=== PATIENT | female | born 1980 | race Caucasian/White ===

== ENCOUNTER 2017-12-04 12:19 | Emergency (ER) | payer BC, OTHER ==
[2017-12-04 12:28] VITALS: BP 138/87
--- NOTE | 2017-12-04 13:04 | ER Document Report ---
ED General - General Chief Complaint: Back Pain Stated Complaint: BACK PAIN Time Seen by Provider: 12/04/17 13:04 Mode of Arrival: Wheelchair Information source: Patient Notes: 37-year-old female has been having low back pain for 1 month. She was seen Dr. Hutchins is a chiropractor and he stated that he was not able to help her so he ordered an MRI. Her MRI showed a herniated L4-L5 disc. She has an appointment with Dr. Farr on Thursday. The chiropractor stated that he cannot prescribe any medications to treat the pain. She works for [employer] and even though she told them that she should not be doing any lifting she had to lift baggage yesterday which aggravated her back pain. She has no saddle anesthesia, fever, or radiculopathy into her legs. TRAVEL OUTSIDE OF THE [place] IN LAST 30 DAYS: No - Related Data Allergies/Adverse Reactions: No Known Allergies Allergy (Unverified 12/04/17 12:22) Past Medical History - General Information source: Patient - Social History Smoking Status: Current Every Day Smoker Frequency of alcohol use: None Drug Abuse: None Lives with: Family Family History: Reviewed & Not Pertinent Musculoskeletal Medical History: Reports Other - Recent diagnosis of herniated L4-L5 Past Surgical History: Reports: Hx Hysterectomy Review of Systems - Review of Systems Constitutional: No symptoms reported EENT: No symptoms reported Cardiovascular: No symptoms reported Respiratory: No symptoms reported Gastrointestinal: No symptoms reported Genitourinary: No symptoms reported Female Genitourinary: No symptoms reported Musculoskeletal: See HPI Skin: No symptoms reported Hematologic/Lymphatic: No symptoms reported Neurological/Psychological: No symptoms reported Physical Exam - Vital signs Vitals: Temp Pulse Resp BP Pulse Ox 98.2 F 89 16 138/87 H 100 12/04/17 12:26 12/04/17 12:26 12/04/17 12:26 12/04/17 12:26 12/04/17 12:26 Interpretation: Normal - General General appearance: Appears well, Alert In distress: None - HEENT Head: Normocephalic, Atraumatic Eyes: Normal Pupils: PERRL Neck: Supple. No: Lymphadenopathy - Respiratory Respiratory status: No respiratory distress Chest status: Nontender Breath sounds: Normal Chest palpation: Normal - Cardiovascular Rhythm: Regular Heart sounds: Normal auscultation Murmur: No - Abdominal Inspection: Normal Distension: No distension Bowel sounds: Normal Tenderness: Nontender Organomegaly: No organomegaly - Back Back: Normal, Nontender. No: Tender - Extremities General upper extremity: Normal inspection, Nontender, Normal color, Normal ROM , Normal temperature General lower extremity: Normal inspection, Nontender, Normal color, Normal ROM , Normal temperature, Normal weight bearing. No: Patrice's sign - Neurological Neuro grossly intact: Yes Cognition: Normal Orientation: AAOx4 Oanh Coma Scale Eye Opening: Spontaneous [place] Coma Scale Verbal: Oriented [place] Coma Scale Motor: Obeys Commands Oanh Coma Scale Total: 15 Speech: Normal Motor strength normal: LUE, RUE, LLE, RLE Sensory: Normal Knee - Reflex grade: 2 = Normal - Bilateral Ankle - Reflex grade: 2 = Normal - Bilateral - Psychological Associated symptoms: Normal affect, Normal mood - Skin Skin Temperature: Warm Skin Moisture: Dry Skin Color: Normal Skin irregularity: negative: Rash Course - Vital Signs Vital signs: Temp Pulse Resp BP Pulse Ox 98.2 F 89 16 138/87 H 100 12/04/17 12:26 12/04/17 12:26 12/04/17 12:26 12/04/17 12:26 12/04/17 12:26 Discharge - Discharge Clinical Impression: Low back pain, Recent history of herniated L4-L5 Condition: Good Disposition: HOME, SELF-CARE Instructions: Acetaminophen, Low Back Pain ([facility]), Muscle Relaxers ([facility]), Oral Narcotic Medication ([facility]), Steroid Medication, Warm Packs ([facility]) Additional Instructions: Warm compress See Dr. Farr on Thursday as planned Return to the emergency room if you get any numbness or tingling in your leg, legs, groin, any worsening of the symptoms Prescriptions: Hydrocodone/Acetaminophen [Hydrocodon-Acetaminophn 10-325] 1 each PO Q4HP PRN # 20 tablet PRN Reason: Cyclobenzaprine HCl [Flexeril 10 Mg Tablet] 10 mg PO TIDP PRN #30 tablet PRN Reason: Prednisone [Deltasone 10 mg Tablet] 10 mg PO ASDIR PRN #21 tablet PRN Reason: Forms: Return to Work Referrals: JUDY FARR MD [COMMUNITY BASED STAFF] - 12/07/17
[2017-12-04] MEDS ORDERED: ACETAMINOPHEN 325 MG TABLET PO ONE (13:12)
[2017-12-04] MEDS ORDERED: HYDROCODONE/ACETAMINOPHEN 10-325 MG TABLET PO ONE (13:12)
[2017-12-04] MEDS ORDERED: ONDANSETRON 4 MG TAB.RAPDIS PO ONE (13:12)
[2017-12-04] MEDS ORDERED: PREDNISONE 20 MG TABLET PO ONE (13:12)
== END 2017-12-04 13:23 | disposition home or self-care (01) ==
LOC: ER 12:19
DX: M51.26 Other intervertebral disc displacement, lumbar region (principal); F17.200 Nicotine dependence, unspecified, uncomplicated
CPT/HCPCS: 99283; S0119; J7512